=== PATIENT | male | born 1960 | race Caucasian/White ===

== ENCOUNTER 2018-06-13 15:19 | Emergency (ER) | payer BC, OTHER ==
--- NOTE | 2018-06-13 15:25 | PDOC ---
History of Present Illness - General Stated Complaint: CHEST PAIN Time Seen by Provider: 06/13/18 15:23 - History of Present Illness Initial Comments: 58yo M with PMH of HLD, HTN, GERD, and obesity presenting with chest pain. Patient was brought to ED by cofounder, Dr. Hammonds. The pain started about four weeks ago, described as burning and pressure, currently rated 8/10. The pain did not initially associate with SOB, but patient now reports associated dyspnea and diaphoresis. His chest pain is brought on by exertion and lasts for about 15 minutes. Denies nausea or vomiting, or history of previous [place]. No [place] in first degree relatives. Mother has heart disease and uncle has coronary artery disease. No hemoptysis, no recent surgical history, no recent mobilization, no hormone use, no history of DVT or PE. No history of arrhythmia. No fever, chills, or abdominal pain. Past History - Past Medical History Allergies/Adverse Reactions: Allergies Allergy/AdvReac Type Severity Reaction Status Date / Time No Known Allergies Allergy Verified 07/23/15 13:41 Home Medications: Ambulatory Orders Amlodipine Besylate/Benazepril [Lotrel 10-20 mg Capsule] 1 each PO DAILY Atorvastatin Ca [Lipitor -] 10 mg PO HS 07/23/15 Oxycodone HCl/Acetaminophen [Percocet 10-650 mg Tablet -] 1 tab PO PRN PRN 07/23 GI Disorders: Yes (COLON ADENOMA) HTN: Yes Hypercholesterolemia: Yes - Surgical History Orthopedic Surgery: Yes (RIGHT KNEE ARTHTROSCOPY X 2) - Suicide/Smoking/Psychosocial Hx Smoking History: Former smoker Have you smoked in the past 12 months: No Hx Alcohol Use: Yes (DAILY) Drug/Substance Use Hx: No Review of Systems - Review of Systems Comments:: Constitutional: no fever, no chills HEENT: no throat pain, no dysphagia Cardiovascular: +chest pain, no palpitations Respiratory: no cough, +shortness of breath Gastrointestinal: no abdominal pain, no nausea, no vomiting, no diarrhea, no constipation Genitourinary: no dysuria, no frequency Musculoskeletal: no myalgia, no arthralgia Skin: no rash, no itching Neurologic: no headache, no dizziness *Physical Exam - Physical Exam Comments: General: Awake, alert, and fully oriented, in no acute distress Head: no signs of trauma Eyes: EOMI, sclera anicteric ENT: Moist mucus membranes Neck: Normal ROM, supple Lungs: Lungs clear, Normal breath sounds Cardio: Regular rhythm, S1 and S2 present Abdomen: Soft, nontender. No guarding, no rebound, no masses Extremities: Normal range of motion, Distal pulses present SKIN: Warm, Dry, normal turgor Neurologic: Cranial nerves II through XII grossly intact. Normal speech ED Treatment Course - LABORATORY CBC & Chemistry Diagram: 06/13/18 15:46 06/13/18 15:46 Medical Decision Making - Medical Decision Making 58yo M with PMH of HLD, HTN, GERD, and obesity presenting with chest pain. -DDX includes but not limited to ACS, PE, MSK, PNA, GERD -CXR: increase prominence right hilum. Correlation and follow-up recommended -EKG: rate 86, QTc 464, NSR -Tpn negative -ASA 162mg, Heparin 5000 bolus, Heparin drip -Presentation concerning for ACS, transfer initiated to laborer at [facility]. Low suspicion of PE due to negative d-dimer. Patient accepted for transfer to [facility] by Dr. Robledo 06/13/18 15:46 *DC/Admit/Observation/Transfer Diagnosis at time of Disposition: Chest pain Qualifiers: Chest pain type: other chest pain Qualified Code(s): R07.89 - Other chest pain - Discharge Dispostion Disposition: TRANSFER ACUTE CARE/OTHER HOSP Condition at time of disposition: Guarded - Referrals Referrals: Faustino Driscoll MD [Primary Care Provider] - - Patient Instructions - Post Discharge Activity
[2018-06-13] MEDS ORDERED: ASPIRIN 81 MG CHEWABLE TABLETS PO ONE (15:28)
--- NOTE | 2018-06-13 15:28 | PDOC ---
Rapid Medical Evaluation Chief Complaint: Chest Pain Time Seen by Provider: 06/13/18 15:23 Medical Evaluation: Allergies Allergy/AdvReac Type Severity Reaction Status Date / Time No Known Allergies Allergy Verified 07/23/15 13:41 06/13/18 15:24 I have performed a brief in person evaluation of this patient. The patient present with a CC of: CP x 4 weeks. No CV hx. Pertinent PE findings: Lungs Clear Heart RRR Abd: Soft, non distended. Bowel sounds in all four quadrants. No pain upon palpation. MS: Moves all extremities without difficulty. Psych: Appropriate affect I have ordered the following: Cardiac protocol The patient will proceed to the ED for further evaluation: Discharge Disposition - Diagnosis Chest pain Qualifiers: Chest pain type: other chest pain Qualified Code(s): R07.89 - Other chest pain ; R07.8 - Other chest pain - Referrals Referrals: Faustino Driscoll MD [Primary Care Provider] - - Patient Instructions - Post Discharge Activity
[2018-06-13 15:35] VITALS: BP 129/84; PULSE 69; TEMP 98.3; BMI 37.3
[2018-06-13] MEDS ORDERED: ASPIRIN 81 MG CHEWABLE TABLETS ONE (15:52)
[2018-06-13 15:57] LABS: BASO % 1.1 % (0-2.0); EOS % 1.1 % (0-4.5); HEMATOCRIT 44.8 % (35.4-49); HEMOGLOBIN 15.6 GM/dL (11.7-16.9); LYMPH % 20.7 % (8-40); MCH 31.6 pg (25.7-33.7); MCHC 34.8 g/dl (32.0-35.9); MEAN CELL VOLUME 90.7 fl (80-96); MEAN PLT VOLUME 7.4 fl (7.5-11.1); MONO % 6.6 % (3.8-10.2); NEUT % 70.5 % (42.8-82.8); PLATELET COUNT 266 K/MM3 (134-434); RBC 4.94 M/mm3 (4.00-5.60); RDW 12.8 % (11.9-15.9); WHITE BLOOD COUNT 10.6 K/mm3 (4.0-10.0)
[2018-06-13] MEDS ORDERED: HEPARIN NA (PORCINE) 5,000 UNITS/ML 1ML VIAL IVPUSH ONE (16:13)
[2018-06-13 16:17] LABS: INR 1.1 (0.83-1.09)
[2018-06-13] MEDS ORDERED: HEPARIN NA (PORCINE) 5,000 UNITS/ML 1ML VIAL ONE (16:26)
[2018-06-13] MEDS ORDERED: HEPARIN INFUSION - 25,000 UNITS/500 ML INFUS.BAG IVPB ONE (16:26)
[2018-06-13] MEDS ORDERED: HEPARIN - 25,000 UNIT in SODIUM CHLORIDE 495 ML IV SCH (16:30)
--- NOTE | 2018-06-13 16:31 | PDOC ---
Attending Attestation - Resident Resident Name: Regina Coates - ED Attending Attestation I have performed the following: I have examined & evaluated the patient, The case was reviewed & discussed with the resident, I agree w/resident's findings & plan, Exceptions are as noted - HPI HPI: 06/13/18 16:26 58-year-old male with past medical history of obesity, hypertension, hyperlipidemia presents with chest pain on exertion and dyspnea. Patient reports the last 4 weeks that he's been developing chest pain at nighttime has not progressive worsening on exertion. Notices worse on exercise improves with rest. No recent fevers or chills. The patient was brought into the ER by cardiology, Dr. Hammonds. Pt is currently being set up for transfer to [facility]. Pt is accepted by Dr. Day ([facility] Cardiology). - Physicial Exam PE: 06/13/18 16:30 GENERAL: Awake, alert, and fully oriented, in no acute distress, Obese HEAD: No signs of trauma EYES: EOMI, sclera anicteric, conjunctiva clear ENT: Auricles normal inspection, hearing grossly normal, nares patent, Moist mucosa NECK: Normal ROM, supple LUNGS: Breath sounds equal, clear to auscultation bilaterally. No wheezes, and no crackles HEART: Regular rate and rhythm, normal S1 and S2, no murmurs, rubs or gallops ABDOMEN: Soft, nontender, No guarding, no rebound. No masses EXTREMITIES: Normal range of motion, no edema. No clubbing or cyanosis. No cords, erythema, or tenderness NEUROLOGICAL: Cranial nerves II through XII grossly intact. Normal speech, SKIN: Warm, Dry, normal turgor, no rashes or lesions noted. - Medical Decision Making 06/13/18 16:30 Vital Signs Temp Pulse Resp BP Pulse Ox 98.3 F 69 18 129/84 100 06/13/18 15:32 06/13/18 15:32 06/13/18 15:32 06/13/18 15:32 06/13/18 15:32 Patient evaluated by cable installation manager Dr. Hammonds. ELDA vs. ACS. Cardiology recommends: asa, IV heparin, transfer. Pt consents for transfer. Will go to [facility]. *DC/Admit/Observation/Transfer Diagnosis at time of Disposition: Chest pain Qualifiers: Chest pain type: other chest pain Qualified Code(s): R07.89 - Other chest pain - Discharge Dispostion Disposition: TRANSFER ACUTE CARE/OTHER HOSP Condition at time of disposition: Guarded - Referrals Referrals: Faustino Driscoll MD [Primary Care Provider] - - Patient Instructions - Post Discharge Activity - Transfer to Acute Care Facility Receiving Facility: [facility]. Accepting Physician:: Dr. Day Heart Score/ECG Review #1 ECG reviewed & interpreted by me at: 15:25 06/13/18 16:35 NSR 86, no std/gauri, T wave flat III, normal axis, normal intervals, QTC 464 msec
[2018-06-13 16:34] LABS: ALBUMIN 4.2 g/dl (3.4-5.0); ALK PHOS 74 U/L (45-117); ANION GAP 12 MMOL/L (8-16); BILIRUBIN,TOTAL 0.7 mg/dL (0.2-1); BLOOD UREA NITROGEN 12 mg/dL (7-18); CALCIUM 8.5 mg/dL (8.5-10.1); CHLORIDE 106 mmol/L (98-107); CO2 22 mmol/L (21-32); CREATININE 0.6 mg/dL (0.55-1.3); GLUCOSE,RANDOM 85 mg/dL (74-106); SGPT/ALT 43 U/L (13-61); SODIUM 140 mmol/L (136-145); TOT PROT 7.7 g/dl (6.4-8.2)
[2018-06-13 16:35] LABS: MAGNESIUM 1.8 mg/dL (1.8-2.4); POTASSIUM 4.6 mmol/L (3.5-5.1); SGOT/AST 36 U/L (15-37)
--- NOTE | 2018-06-13 17:08 | CONS ---
DATE OF CONSULTATION: 06/13/2018 REQUESTING PHYSICIAN: Ed Kitchen M.D. CARDIOLOGY CONSULTATION CHIEF COMPLAINT: 1. Chest pain. 2. Shortness of breath. HISTORY OF PRESENT ILLNESS: The patient is a 58-year-old white gentleman who presented to Dr. Driscoll's office with complaints of chest pain that started approximately four weeks ago. Initially, the patient complained of a retrosternal burning sensation that woke him from sleep on several occasions which he attributed to gastroesophageal reflux. Later, he started to notice that he was experiencing retrosternal pressure-like discomfort, again accompanied by a burning sensation when he was using a stationary bike. His symptoms became progressively more pronounced and he had to stop using the bike. The pain was accompanied by dyspnea. The pain was nonradiating and nonpleuritic in nature. The patient started to walk outdoors and noticed that the same symptoms were occurring with increasing frequency and walking short distances. The symptoms were always accompanied by dyspnea. Starting the day before his admission, he was carrying a pot of soup and as he got to the top of the stairs, he developed pain that was prolonged, lasting for over 15 minutes, accompanied by significant dyspnea. This morning, after taking a shower, he was in the process of dressing when he started experiencing chest discomfort, again accompanied by shortness of breath but this time, he also had diaphoresis. In view of these symptoms, he decided to see his primary care doctor, who referred the patient to my office. The patient has a long-standing history of hypertension and hypercholesterolemia. He was diagnosed to have anti-phospholipid antibodies, a history of obstructive sleep apnea syndrome and gastroesophageal reflux disease. While being told about further evaluation and management, the patient again developed retrosternal chest discomfort lasting for a few minutes. This abated spontaneously. PAST HISTORY: 1. As mentioned in the history of present illness. 2. History of low back syndrome. SURGICAL HISTORY:1. Status post tonsillectomy. 2. Status post total left knee replacement in October 2017. 3. Status post arthroscopic surgery on the right knee in 2007 and in 2008. 4. Status post surgery for an anal fissure. SOCIAL HISTORY: . He is retired and disabled. He smoked from the age of 13 until age 43. He used to smoke up to two packs of cigarettes per day. He has one to two martinis per day. He denies any recent drug use. FAMILY HISTORY: Father at age 83 related to renal failure. He had been on dialysis. Mother at age 79. She had coronary artery disease status post coronary artery bypass grafting and diabetes mellitus. One of his uncles had coronary artery disease. He has one brother and one sister. His sister had bilateral mastectomies for carcinoma. His brother possibly has hypertension. ALLERGIES: None reported. MEDICATIONS: 1. Lipitor 10 mg 3 times a week. 2. Amlodipine 10 mg. 3. Benazepril 20 mg one p.o. daily. 4. Percocet 5/325 mg t.i.d. p.r.n. 5. Aspirin 81 mg p.o. daily. 6. Medical cannabis in oral form for pain management. REVIEW OF SYSTEMS: Constitutional: No history of chills, fever or night sweats. No history of unintentional weight loss. HEENT: No history of headaches, diplopia or blurred vision. No history of epistaxis, hoarseness, tinnitus or deafness. Cardiovascular: See history of present illness. Respiratory: No history of cough, expectoration or hemoptysis. See HISTORY OF PRESENT ILLNESS. Gastrointestinal: No history of nausea, vomiting, melena or hematemesis. History of water brash and food regurgitation which occasionally wakes him from sleep. No history of abdominal pain or discomfort. No change in bowel habits reported. GLASS ETCHER: No history of lightheadedness, dizziness, pre-syncope or syncope. No history of focal weakness or seizures. Musculoskeletal: See HISTORY OF PRESENT ILLNESS. Endocrine: No history of polyuria or polydipsia. No history of intolerance to cold or warm weather. Hematologic/Lymphatics: No history of anemia, ecchymosis or bleeding. No history of lymphadenopathy. PHYSICAL EXAMINATION: General: A 58-year-old morbidly obese gentleman in no acute distress. There was no pallor, cyanosis, clubbing or jaundice. Vital signs: Weight 275 pounds. Blood pressure 129/84 mmHg. Pulse 69 beats per minute and regular. Temperature 98.3 degrees Fahrenheit. Oxygen saturation 100%. Neck: Supple. No jugular venous distention. Carotids were 2+. Upstrokes were normal. No bruits were heard and no thyromegaly was present. Heart: PMI was not localized. No heaves or thrills. Heart sounds were distant. No murmur or gallops were heard. There were no rubs. Lungs: Clear to auscultation. Chest: Normal AP diameter. Expansion was symmetrical. Abdomen: Soft, obese, nontender. No hepatosplenomegaly or palpable masses were felt. Bowel sounds were present. No bruits were heard. Extremities: No calf tenderness or dependent edema. Ramiro sign is negative. There is a well healed surgical scar over the left knee. Pulses are equal. ECG revealed sinus rhythm with normal ST and T waves. Repeat ECG in the emergency room revealed sinus rhythm. There was a right axis deviation. There was S1 and a small Q3. There were no ST and T wave changes. LABORATORY DATA: Lab data is pending. IMPRESSION: 1. Chest pain syndrome. Clinical presentation is highly suggestive of coronary artery disease with progressive angina pectoris. 2. Pulmonary thromboembolism needs to be considered, especially in the presence of anti-phospholipid antibodies. 3. Hypertensive cardiovascular disease, currently normotensive. 4. Hypercholesterolemia. 5. Obstructive sleep apnea syndrome. 6. Morbid obesity. RECOMMENDATIONS: 1. Troponin levels. 2. D-dimer. 3. IV nitroglycerin. 4. Aspirin 325 mg chewable STAT. 5. CBC, comprehensive metabolic profile, thyroid function tests. 6. Chest x-ray. 7. Heparinization. 8. [facility] has been notified and the patient is to be transported urgently for cardiac catheterization and further workup if necessary. 9. Prognosis is guarded. Thank you for your referral. ERICA PORTILLO M.D. [id number]
--- NOTE | 2018-06-14 09:41 | EKG ---
Test Reason : Blood Pressure : / mmHG Vent. Rate : 086 BPM Atrial Rate : 086 BPM P-R Int : 178 ms QRS Dur : 090 ms QT Int : 388 ms P-R-T Axes : 052 083 058 degrees QTc Int : 464 ms NORMAL SINUS RHYTHM NORMAL ECG NO PREVIOUS ECGS AVAILABLE Confirmed by LUZ JAIME MD ([id number]) on 06/14/2018 9:40:26 AM Referred By: Confirmed By:LUZ JAIME MD
== END 2018-06-13 17:59 | disposition short-term general hospital (02) ==
LOC: JER 15:19
PROC: 3E033GC Introduction of Other Therapeutic Substance into Peripheral Vein, Percutaneous Approach (ICD-10-PCS; principal; 2018-06-13)
DX: R07.9 Chest pain, unspecified (principal); I10 Essential (primary) hypertension; E78.5 Hyperlipidemia, unspecified; K21.9 Gastro-esophageal reflux disease without esophagitis; E66.9 Obesity, unspecified; Z68.37 Body mass index [BMI] 37.0-37.9, adult
CPT/HCPCS: 36415; 71046-TC-FY; 80053; 82465; 82550; 83735; 84484; 85025; 85379; 85610; 85730; 93005; 93010; 99284-25; J1644